=== PATIENT | female | born 1945 | race Two or more races ===

== ENCOUNTER → 2020-10-29 | Outpatient (CLI) | payer OTHER | END | disposition home or self-care (01) | LOC: OFIC 805 12:15 | PROVIDERS: ATTEND Otolaryngology | DX: R42 Dizziness and giddiness (principal); H61.23 Impacted cerumen, bilateral; H90.3 Sensorineural hearing loss, bilateral ==

== ENCOUNTER 2021-02-05 08:23 | Outpatient (CLI) | payer OTHER | END 2021-02-05 08:56 | disposition home or self-care (01) | LOC: OFIC 805 08:23 | PROVIDERS: ATTEND Otolaryngology Otology & Neurotology | DX: R42 Dizziness and giddiness (principal); H91.13 Presbycusis, bilateral ==